=== PATIENT | male | born 1965 | race Caucasian/White ===

== ENCOUNTER → 2017-03-23 | Outpatient (CLI) | payer BC ==
--- NOTE | 2017-03-23 15:39 | US ---
EXAMINATION TYPE: US kidneys/renal and bladder DATE OF EXAM: 03/23/2017 COMPARISON: NONE CLINICAL HISTORY: R94.4 HEMATURIA. EXAM MEASUREMENTS: Right Kidney: 9.8 x 3.5 x 4.7 cm Left Kidney: 10.0 x 4.4 x 4.5 cm Post Void Residual Volume: 14.8 mL Right Kidney: No hydronephrosis or masses seen Left Kidney: No hydronephrosis or masses seen Bladder: wnl Bilateral Jets seen: Yes Normal Post Void Residual: Yes There is no evidence for hydronephrosis at this point in time. No nephrolithiasis is seen. No russell s are identified. The urinary bladder is anechoic. Bilateral ureteral jets are seen. After voiding minimal residual urine is present. IMPRESSION: No suspicious finding is seen to account for patient's symptoms. If symptoms persists further investi gation with CT urogram may be warranted.
== END | disposition home or self-care (01) ==
LOC: RADUSWWP 15:00
PROVIDERS: ATTEND Family Medicine
DX: R31.9 Hematuria, unspecified (principal); R94.4 Abnormal results of kidney function studies
CPT/HCPCS: 36415; 76770; 82575